=== PATIENT | female | born 1980 | race Caucasian/White ===

== ENCOUNTER 2021-05-09 14:08 | Emergency (ER) | payer MEDICAID ==
[~2021-05-09] VITALS: Ht 175.3 cm; Wt 136.4 kg
[2021-05-09 14:38] VITALS: BP 122/65
[2021-05-09] MEDS ORDERED: BENZ-16 PO (15:45)
[2021-05-09] MEDS ORDERED: DEXA6TAB6 PO (15:45)
== END 2021-05-09 16:01 | disposition home or self-care (01) ==
LOC: ER 14:10
DX: U07.1 COVID-19 (principal); J12.82 Pneumonia due to coronavirus disease 2019; E06.9 Thyroiditis, unspecified
CPT/HCPCS: 71045; 99283

== ENCOUNTER 2021-12-20 08:48 | Emergency (ER) | payer MEDICAID ==
[~2021-12-20] VITALS: Ht 175.3 cm; Wt 134.1 kg
[~2021-12-20 08:48] MED LIST: DEXA6TAB6 PO
[2021-12-20 10:00] LABS: BASOPHILS % (AUTO) 0.4 % (0-1); EOSINOPHILS # (AUTO) 0.1 X10'3 (0-0.9); EOSINOPHILS % (AUTO) 1.7 % (0-6); HEMATOCRIT 39.6 % (35.0-45.0); HEMOGLOBIN 13.3 g/dl (12.0-16.0); LYMPHOCYTES # (AUTO) 1.2 X10'3 (1.1-4.8); LYMPHOCYTES % (AUTO) 16.5 % (21-51); MEAN CORPUSCULAR HEMOGLOBIN 29.3 PG (27.0-31.0); MEAN CORPUSCULAR HGB CONC 33.5 g/dL (33.0-36.5); MEAN CORPUSCULAR VOLUME 87.6 FL (78-98); MEAN PLATELET VOLUME 8.6 FL (7.4-10.4); MONOCYTES # (AUTO) 0.7 X10'3 (0-0.9); MONOCYTES % (AUTO) 8.8 % (2-12); NEUTROPHILS # (AUTO) 5.4 X10'3 (1.8-7.7); NEUTROPHILS % (AUTO) 72.6 % (42-75); PLATELET COUNT 312 X10'3 (140-440); RED BLOOD COUNT 4.53 X10'6 (4.20-5.60); RED CELL DISTRIBUTION WIDTH 14.2 % (11.5-14.5); WHITE BLOOD COUNT 7.5 X10'3 (4.5-11.0)
[2021-12-20 10:22] LABS: ALANINE AMINOTRANSFERASE 25 U/L (12-78); ALBUMIN 4.1 G/DL (3.4-5.0); ALBUMIN/GLOBULIN RATIO 1.2 (1.1-1.5); ALKALINE PHOSPHATASE 63 IU/L (46-116); ANION GAP 10 (8-16); ASPARTATE AMINO TRANSFERASE 32 U/L (10-37); BILIRUBIN,TOTAL 0.6 MG/DL (0.1-1.0); BLOOD UREA NITROGEN 8 MG/DL (7-18); BUN/CREATININE RATIO 10.3 (6.6-38.0); CALCIUM 8.7 MG/DL (8.5-10.1); CHLORIDE 102 MMOL/L (99-107); CREATININE 0.78 MG/DL (0.40-0.90); GLUCOSE 94 MG/DL (70-104); MAGNESIUM 2.5 MG/DL (1.5-2.4); POTASSIUM 3.6 MMOL/L (3.5-5.1); SODIUM 139 MMOL/L (135-145); TOTAL CARBON DIOXIDE 27.1 MMOL/L (24-32); TOTAL PROTEIN 7.5 G/DL (6.4-8.2); eGFR 81 ML/MIN
[2021-12-20 13:27] VITALS: BP 117/79
== END 2021-12-20 13:28 | disposition home or self-care (01) ==
LOC: ER 08:51
DX: R07.9 Chest pain, unspecified (principal); R06.02 Shortness of breath; R04.0 Epistaxis; Z20.822 Contact with and (suspected) exposure to COVID-19; E03.9 Hypothyroidism, unspecified
CPT/HCPCS: 36415; 71045; 80053; 83735; 84484; 85025; 87635; 93005; 99285; C9803

== ENCOUNTER 2022-06-15 14:14 | Emergency (ER) | payer OTHER, MEDICAID ==
[~2022-06-15] VITALS: Ht 175.3 cm; Wt 127.3 kg
[2022-06-15 15:07] VITALS: BP 119/83
[2022-06-15] MEDS ORDERED: NAPR-56 PO (15:58)
[2022-06-15] MEDS ORDERED: ONDA4TAB12 PO (15:58)
[2022-06-15] MEDS ORDERED: ORPH100T2 PO (15:58)
[2022-06-15] MEDS ORDERED: ketorolac trometh. 30mg/ml inj. IM ONE (16:00)
[2022-06-15] MEDS ORDERED: orphenadrine citrate 60mg/2ml inj. IM ONE (16:00)
[2022-06-15] MEDS ORDERED: ketorolac trometh inj. 60 MG/2 ML VIAL IM ONE (16:00)
== END 2022-06-15 16:11 | disposition home or self-care (01) ==
LOC: ER 14:14
DX: S13.4XXA Sprain of ligaments of cervical spine, initial encounter (principal); R51.9 Headache, unspecified; R00.2 Palpitations; R11.0 Nausea; Z98.890 Other specified postprocedural states; Z79.899 Other long term (current) drug therapy; V87.7XXA Person injured in collision between other specified motor vehicles (traffic), initial encounter; Y93.89 Activity, other specified; Y92.89 Other specified places as the place of occurrence of the external cause; Y99.8 Other external cause status
CPT/HCPCS: 93005; 99283

== ENCOUNTER 2022-08-21 05:38 | Emergency (ER) | payer MEDICAID, OTHER ==
[~2022-08-21] VITALS: Ht 175.3 cm; Wt 127.3 kg
[~2022-08-21 05:38] MED LIST changes: +ONDA4TAB12 PO; +ORPH100T2 PO
[2022-08-21] MEDS ORDERED: AZIT250T PO (07:49)
[2022-08-21] MEDS ORDERED: diphenhydrAMINE 25mg capsule PO ONE (07:50)
[2022-08-21 08:00] VITALS: BP 133/88
== END 2022-08-21 08:12 | disposition home or self-care (01) ==
LOC: ER 05:39
DX: R09.81 Nasal congestion (principal); E03.9 Hypothyroidism, unspecified; Z98.890 Other specified postprocedural states; Z79.2 Long term (current) use of antibiotics; Z79.899 Other long term (current) drug therapy
CPT/HCPCS: 99283; Q0163

== ENCOUNTER 2023-11-11 04:21 | Emergency (ER) | payer BC, MEDICAID ==
[~2023-11-11] VITALS: Ht 172.7 cm; Wt 132.9 kg
[~2023-11-11 04:21] MED LIST changes: -ORPH100T2 PO; +ORPH100T4 PO
[2023-11-11 04:39] VITALS: TEMP 97
[2023-11-11] MEDS: acetaminophen 325mg tablet PO ONE (05:18)
[2023-11-11 05:33] VITALS: BP 125/72; PULSE 72; RESP 18; O2SAT 96
== END 2023-11-11 05:36 | disposition home or self-care (01) ==
LOC: ER 04:22
DX: J06.9 Acute upper respiratory infection, unspecified (principal); E03.9 Hypothyroidism, unspecified; Z79.899 Other long term (current) drug therapy
CPT/HCPCS: 71045; 93005; 99283